=== PATIENT | female | born 1995 | race Caucasian/White ===

== ENCOUNTER 2021-06-01 18:53 | Emergency (ER) | payer BC, MEDICAID ==
[2021-06-01 20:56] VITALS: BP 117/65; PULSE 55
== END 2021-06-01 21:00 | disposition home or self-care (01) ==
LOC: MW.ED 18:53
DX: S06.0X9A Concussion with loss of consciousness of unspecified duration, initial encounter (principal); S13.9XXA Sprain of joints and ligaments of unspecified parts of neck, initial encounter; S00.03XA Contusion of scalp, initial encounter; Z72.0 Tobacco use; W18.09XA Striking against other object with subsequent fall, initial encounter
CPT/HCPCS: 70450; 70450-26; 99283-25